=== PATIENT | male | born 1990 | race Caucasian/White ===

== ENCOUNTER 2021-02-01 16:03 | Inpatient (IN) | payer SELFPAY ==
[2021-02-01 16:05] VITALS: BP 134/108; PULSE 71; RESP 18; TEMP 36.9; O2SAT 97; BMI 26.6
--- NOTE | 2021-02-01 16:23 | ED_ITS ---
HPI - Psych General: Chief Complaint: Psychiatric Symptoms Stated Complaint: SI Time Seen by Provider: 02/01/21 16:18 History of Present Illness: HPI Narrative: Patient presents with suicidal ideation and has a plan he would drive off a [place] with his truck because he does not want to go on living. States he has been getting depressed here in the last few months. having relationship problems. Now his fianc?e has been cheating on him he found out, now keeping his kid from him. She also has a restraining order from him. Patient is in the room crying and tearful, said he has been smoking some weed to help deal with his anxiety from this ordeal. Aria lozano basically states he is afraid of what he might do to himself if he is left alone. He said he cannot deal with the emotional stress that he is going through. He is asking us for help MD complaint: suicidal ideation Onset (ago): day(s) Duration: constant and getting worse History of same: Yes (A long time ago) Relieving factors: other (Marijuana has helped) Context: recent drug abuse and significant life stressor Associated psychiatric symptoms: depression and suicidal ideation Associated symptoms: Reports no associated symptoms and depression If self harm: admits thoughts of self harm and has plan Review of Systems Const: Denies: fever(s), chills or body aches Eyes: Denies: change in vision or blurry vision ENMT: Denies: throat pain or nasal congestion Card: Denies: chest pain or dyspnea on exertion Resp: Denies: dyspnea, productive cough or non-productive cough GI: Denies: abdominal pain, nausea or vomiting : Denies: difficulty urinating Musc: Denies: extremity pain Skin/Breast: Denies: rash Neuro: Denies: headache(s) Psych: Reports: anxiety, depression, sleeping less and difficulty concentrating Donovan/Lymph: Denies: easy bruising Physical Exam Const: COMMON NORMALS: no acute distress, average body habitus and patient oriented x3 GENERAL APPEARANCE: well kempt HENMT: COMMON NORMALS: normocephalic HEAD & SCALP: normal to inspection and normocephalic FACE & SINUS: normal facial exam Eye: COMMON NORMALS: conjunctivae normal GENERAL EYE: appearance normal, both eyes and all related structures CONJUNCTIVA: Yes conjunctivae normal Neck/C-Spine: COMMON NORMALS: no JVD Chest: COMMONS NORMALS: normal inspection of the chest Resp: COMMON NORMALS: normal respiratory effort and clear to auscultation bilaterally AUSCULTATION: clear to auscultation bilaterally Cardio: COMMON NORMALS: no JVD, regular rate and regular rhythm RATE: regular rate RHYTHM: regular rhythm GI: COMMON NORMALS: Normal to inspection, nondistended, normoactive bowel sounds present Extremity: COMMON NORMALS: normal to inspection and full ROM Neuro: COMMON NORMALS: patient oriented x3 Psych: COMMON NORMALS: mental status grossly normal and Normal thought process present APPEARANCE: Yes well kempt ATTITUDE: Yes engaged ACTIVITY/MOTOR BEHAVIOR: Yes appropriate eye contact SPEECH: Yes soft MOOD & AFFECT: Yes anxious and Yes Other affect and mood findings present (Crying) THOUGHT PROCESS: Normal thought process present JUDGEMENT: Good judgement present (Psych) Course Vital Signs: Vital signs: Vital Signs Temperature 98.4 F 02/01/21 16:05 Pulse Rate 71 02/01/21 16:05 Respiratory Rate 18 02/01/21 16:05 Blood Pressure 134/108 02/01/21 16:05 Pulse Oximetry 97 02/01/21 16:05 MDM - Psych MDM Narrative: Medical decision making narrative: I spoke with Dr. Ramon who agrees accept patient for admission. Discharge Plan Discharge Patient Disposition: Admitted As Inpatient Clinical Impression: Depression with suicidal ideation Condition: Stable Coding Level of Care Code ED Paediatric Surgeon for Lelo Fwd Exam Comprehensive
[2021-02-01 16:50] LABS: Basophils % 0.3 %; Eosinophils # 0.1 10^3/uL (0.0-0.8); Eosinophils % 1.7 %; Hematocrit 42.8 % (42.0-52.0); Hemoglobin 14.4 g/dL (11.7-16.6); Lymphocytes % 43.4 %; Mean Corpuscular HGB Conc 33.6 g/dL (30.0-36.0); Mean Corpuscular Volume 92.2 fL (80-94); Mean Platelet Volume 9.6 fL (7.4-10.4); Monocytes # 0.4 10^3/uL (0.2-0.9); Monocytes % 5.2 %; Neutrophils # 3.38 10^3/uL (1.8-7.7); Neutrophils % 49.3 %; Nucleated Red Blood Cells % 0 %; Platelet Count 280 10^3/cmm (130-400); Red Blood Count 4.64 10^6/uL (4.1-5.3); Red Cell Distribution Width 12.7 % (12.1-15.1); White Blood Count 6.9 10^3/uL (4.0-10.0)
[2021-02-01] MEDS: LORazepam 1 mg Tablet PO (16:55)
[2021-02-01 17:02] LABS: Amphetamines Screen Urine Positive (Negative); Barbiturates Screen Urine Negative (Negative); Benzodiazepines Screen Urine Negative (Negative); Cocaine Screen Urine Negative (Negative); Opiate Screen Urine Negative (Negative); PCP Screen Urine Negative (Negative); THC Screen Urine Positive (Negative)
[2021-02-01 17:47] LABS: Alanine Aminotransferase 30 U/L (0-41); Albumin Level 4.3 g/dL (3.5-5.2); Alkaline Phosphatase 61 IU/L (40-130); Anion Gap 13.7 (5-19); Aspartate Amino Transferase 25 U/L (0-40); Blood Urea Nitrogen 9 mg/dL (6-20); Calcium 8.2 mg/dL (8.5-10.5); Carbon Dioxide 25 mmol/L (22-29); Chloride 102 mmol/L (98-107); Globulin 2.6 g/dL (1.3-4.6); Glomerular Filtration Rate 98.4 mL/min (90-130); Glucose 99 mg/dL (65-115); Osmolality Calculated 283 mOsm/kg (285-295); Potassium 3.7 mmol/L (3.5-5.1); Sodium 137 mmol/L (136-145); Total Bilirubin 0.6 mg/dL (0.15-1.2); Total Protein 6.9 g/dL (6.6-8.7)
[2021-02-01 17:48] LABS: Slide Review Slide Review Perform
[2021-02-01 17:58] LABS: Acetaminophen < 5.0 ug/mL (10-30); Salicylate < 0.3 mg/dL (3-10)
[2021-02-01 18:57] VITALS: BP 126/85; PULSE 77; RESP 17; TEMP 36.5; O2SAT 98
--- NOTE | 2021-02-01 19:54 | PC.NURSE ---
short count on med pt came to NPU with Suboxone 8-2mg dissolvable pills, his bottle was filled on at [facility], , prescribed by Aris Nicholas 01/21/21 with count of 84 pills at that time prescribed TID; today 02/01/21, count verified by MARIZA CAMILO and TENISHA Ochoa, it is currently 30.5 pills in the bottle, the count is short by 19.5 pills. They are unaccounted for by pt. Bottle sealed, pt watched and signed count at time of admit. Physician notified. Dr Benny Ramon 02/01/21 @2012 who orders NPU to hold this medication.
[2021-02-01] MEDS: hyDROXYzine 25 mg Capsule 50 MG PO (20:19)
[2021-02-01] MEDS: nicotine 2 mg Gum BUCCAL (20:19)
[2021-02-01] MEDS: acetaminophen 325 mg Tablet 650 MG PO (21:02)
[2021-02-01 22:00] VITALS: BP 106/76; PULSE 81; RESP 18; TEMP 36.4; O2SAT 98
--- NOTE | 2021-02-01 23:21 | PC.NURSE ---
new admit 35/M . Zhang Justin +METH +THC, Uses Suboxone 8-2mg PO BID, count is short by 30.5 pills on count by nurses in NPU, Physician notified. Medication held on Dr. Ramon order. Pt is 96d SI -plan to drive his Semi off a [place], depressed over last couple months after relationship ended d/t cheating partner, reports significant other is not letting him see his child. 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
[2021-02-02 06:00] VITALS: BP 85/58; PULSE 55; RESP 14; TEMP 36.8; O2SAT 96
[2021-02-02] MEDS: hyDROXYzine 25 mg Capsule 50 MG PO (12:56)
[2021-02-02] MEDS: nicotine 21 mg Patch 1 PATCH TRANSDERMA (13:20)
[2021-02-02 14:00] VITALS: BP 98/66; PULSE 68; RESP 16; TEMP 36.7; O2SAT 97
--- NOTE | 2021-02-02 14:22 | PM.NHP ---
Providers/Chief Complaint Admitting Physician: Mark Ramon MD Chief Complaint: SI HPI NPU History of Present Illness Zhang Anderson is a 30 year old male who presented to the emergency department with the following report: Chief Complaint: Psychiatric Symptoms Stated Complaint: SI Time Seen by Provider: 02/01/21 16:18 History of Present Illness: HPI Narrative: Patient presents with suicidal ideation and has a plan he would drive off a [place] with his truck because he does not want to go on living. States he has been getting depressed here in the last few months. having relationship problems. Now his fianc?e has been cheating on him he found out, now keeping his kid from him. She also has a restraining order from him. Patient is in the room crying and tearful, said he has been smoking some weed to help deal with his anxiety from this ordeal. Patient basically states he is afraid of what he might do to himself if he is left alone. He said he cannot deal with the emotional stress that he is going through. He is asking us for help complaint: suicidal ideation Onset (ago): day(s) Duration: constant and getting worse History of same: Yes (A long time ago) Relieving factors: other (Marijuana has helped) Context: recent drug abuse and significant life stressor Associated psychiatric symptoms: depression and suicidal ideation Associated symptoms: Reports no associated symptoms and depression If self harm: admits thoughts of self harm and has plan. He was admitted to the neuropsychiatric unit for definitive treatment of those issues. He reports today endorsing that he never had psychiatric treatment, never saw a therapist or outpatient psychiatrist and never been on medication. He reports he smokes about 1/2 pack of cigarettes a day has alcohol very seldom but does smoke marijuana and he denied cocaine methamphetamine or other illicit drugs. He denies ever going to rehab or having a DUI. He denied history of suicide attempts. He reports that his mom left him after treating and broke his heart and left with his child and kept his child away. He reports it is all piled up and he came to the hospital yesterday secondary to those issues. He did not report an answer to his UDS. But he did endorse a willingness to try an antidepressant but reports that he needs to get back to work. We discussed the fact that we needed to evaluate for safety given the reports in the affidavits. Discussed the risk-benefit alternatives for trial of SSRI and he understood and agreed proceed as documented in this note. Psychiatric history: As above. Substance abuse history: As above Family history: Patient denies mental health or addiction issues on either side of the family and denies suicide attempts or completions in the family. Developmental history: There were no problems with the , or delivery, learned to walk and talk and met developmental milestones on time, and denies need for speech therapy, learning support, emotional support or special education classes. Psychosocial history: He reports that his mother and father were together and that he has a younger sister who is a product of that union. He denies his mother having any other children, but reports his father did have a daughter that is his half sibling. He reports his childhood was not the greatest but he denies emotional, physical or sexual abuse. He graduated from high school. 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 He reports that he is a heterosexual with a long relationship being 45 years. He is never been officially , he has a 9-year-old daughter and 3-year-old son, is never been in the , and denies any restorationist belief system. He reports his longest employment is 3 years. He currently lives in a trailer alone. Legal history: He endorses he is been in retirement 1 time for maybe 6 days. Medical history: He denies any significant medical history please see ED note for additional details. Meds NPU Home Medications Medication Instructions Recorded Confirmed Last Taken Type buprenorphine-naloxone 1 tab SUBLINGUAL TID 02/01/21 02/01/21 02/01/21 13:00 History Allergies Allergy/AdvReac Type Severity Reaction Status Date / Time No Known Allergies Allergy Verified 02/01/21 20:10 Mental Status Exam MSE Comments: This is a well-nourished, well-developed white male with adequate dress, grooming and eye contact. No abnormal movements except mild psychomotor retardation. Cooperative with exam in no acute distress. Speech was normal rate and volume. Mood described as okay, affect slightly subdued. Thought process organized. Thought content: Patient denied suicidal or homicidal ideation, there were no delusions reported or noted, he denies any auditory or visual hallucinations. Attention and concentration were intact and memory was mostly reliable but none were formally tested. He is alert and oriented x3. Insight and judgment appear limited, impulse control is limited. Vitals/I&O/Wt Last Vital Signs Temp 98.1 F 02/02/21 14:00 Pulse 68 02/02/21 14:00 Resp 16 02/02/21 14:00 BP 98/66 02/02/21 14:00 Pulse Ox 97 02/02/21 14:00 Weight last 48 hrs Weight 81.647 kg Data NPU : 02/01/21 16:30 02/01/21 16:30 A&P Assessment and plan (1) Depression with suicidal ideation: Status: Acute (2) Anxiety: Status: Acute (3) Cannabis abuse: Status: Acute (4) Amphetamine addiction: Status: Acute (5) Opioid dependence on agonist therapy: Status: Acute Additional A&P Information This is a 30-year-old white male with a recent history of partner relational problem and depression with significant addiction that he seems to be under representing with suicidal thinking on a 96-hour hold. 1. Continue current medication. We will start Prozac 20 mg p.o. every morning. 2. Continue every 15 minute checks for safety. 3. Encourage individual, group and milieu therapies. 4. Encourage sober living treatment after discharge at the highest level of care to which he is willing to commit. 5. 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 He is very focused on getting back to work Involuntary Hold Information 96 Hour Hold: 96 Hour Involuntary Admission: Yes 96 Hour Hold Ending Date: 02/07/21 96 Hour Hold Ending Time: 16:30 Attestations NPU Medical Necessity Statement*: Inpatient hospitalization is medically necessary and the clinically appropriate intervention at this time. We will monitor medications and make changes as indicated. Patient will be in the hospital for over two midnights. Likely length of stay 2-4 days. Need to evaluate for safety given the 96-hour hold. Coding Level of Care Code Acute Claim Processor for Lelo Valdovinos Diagnoses Depression with suicidal ideation F32.9; R45.851 Anxiety F41.9 Cannabis abuse F12.10 Amphetamine addiction F15.20 Opioid dependence on agonist therapy F11.20
[2021-02-02] MEDS: NON-FORMULARY MEDICATION (Buprenorphine-Naloxone 8-2 mg tablet, sublingual) 1 EACH SUBLINGUAL ×2 (15:25→20:25)
[2021-02-02 20:22] VITALS: BP 98/62; PULSE 76; RESP 15; TEMP 36.9; O2SAT 96
[2021-02-03 06:00] VITALS: BP 99/62; PULSE 73; RESP 15; TEMP 36.4; O2SAT 96
[2021-02-03] MEDS: NON-FORMULARY MEDICATION (Buprenorphine-Naloxone 8-2 mg tablet, sublingual) 1 EACH SUBLINGUAL ×3 (08:32→20:30)
[2021-02-03] MEDS: fluoxetine 20 mg Capsule PO (08:32)
[2021-02-03] MEDS: nicotine 21 mg Patch 1 PATCH TRANSDERMA (13:40)
[2021-02-03 14:00] VITALS: BP 102/57; PULSE 71; RESP 20; TEMP 36.7; O2SAT 94
[2021-02-03] MEDS: hyDROXYzine 25 mg Capsule 50 MG PO ×2 (15:30→20:42)
--- NOTE | 2021-02-03 15:31 | PC.NURSE ---
Addendum entered by Shavon Mcgraw LPN 02/03/21 16:19: prn med effective no further c/o anxiety Original Note: PRN VISTARIL 50 MG GIVEN PO PER PT C/O STATED ANXIETY PT UPSET AFTER SPEAKING WITH PHYSICIAN. CLENCHED FISTS NOTICED. WILL CONT TO MONITOR
--- NOTE | 2021-02-03 16:06 | P.PN_ITS ---
Subjective NPU Subjective: Interval history: Patient denies any recent methamphetamine use, denies any ongoing treatment at any clinics despite being asked Patient currently denying any suicidal ideation, denies any depressive symptoms Denies any psychotic symptoms Mental Status Exam MSE Comments: Sitting up in his bed, appears stated age, wearing hospital scrubs, appropriately groomed and dressed, calm, cooperative although somewhat guarded and evasive, good eye contact Psychomotor activity is neither increased or decreased, no agitation Speech is normal rate and volume, spontaneous, clear reticulation, not pressured I feel okay, full range of affect, not labile Alert and oriented to person, place, time, situation Memory and concentration appear to be intact per interview Thought process, linear, no flight of ideas, no looseness of associations Thought content, no delusions, no hallucinations, no suicidal or homicidal ideation Insight and judgment appear to be fair Vitals/I&O/Wt Last Vital Signs Temp 97.6 F 02/03/21 06:00 Pulse 73 02/03/21 06:00 Resp 15 02/03/21 06:00 BP 99/62 02/03/21 06:00 Pulse Ox 96 02/03/21 06:00 Data NPU : 02/01/21 16:30 02/01/21 16:30 A&P Assessment and plan (1) Opioid dependence on agonist therapy: Status: Acute (2) Amphetamine addiction: Status: Acute (3) Cannabis abuse: Status: Acute (4) Anxiety: Status: Acute (5) Depression with suicidal ideation: Status: Acute Additional A&P Information Patient appears to be in denial about recent methamphetamine use but does report recent cannabis use, denies any depressive symptoms and also appears to be in denial about his stress and reaction to recent ongoing relationship and life stressors CONTINUE treatment, continue to monitor Involuntary Hold Information 96 Hour Hold: 96 Hour Involuntary Admission: Yes 96 Hour Hold Ending Date: 02/07/21 96 Hour Hold Ending Time: 16:30 Attestations NPU Medical Necessity Statement*: Patient continues to be on 96-hour hold for evaluation and monitoring, coordination for safe discharge Coding Level of Care Code Acute Dental Assistant for Lelo Fwd Diagnoses Opioid dependence on agonist therapy F11.20 Amphetamine addiction F15.20 Cannabis abuse F12.10 Anxiety F41.9 Depression with suicidal ideation F32.9; R45.851
[2021-02-03 20:34] VITALS: BP 93/55; PULSE 68; RESP 16; TEMP 36.6; O2SAT 97
[2021-02-03] MEDS: trazodone 50 mg Tablet PO (20:43)
[2021-02-03] MEDS: acetaminophen 325 mg Tablet 650 MG PO (20:43)
--- NOTE | 2021-02-04 00:54 | PC.NURSE ---
The patient requested and given Trazodone and Vistaril to help with sleep. He has been sleeping since about 2129.
[2021-02-04 05:40] VITALS: BP 93/61; PULSE 68; RESP 16; TEMP 36.7; O2SAT 96
[2021-02-04] MEDS: NON-FORMULARY MEDICATION (Buprenorphine-Naloxone 8-2 mg tablet, sublingual) 1 EACH SUBLINGUAL (08:34)
[2021-02-04] MEDS: fluoxetine 20 mg Capsule PO (08:34)
[2021-02-04 09:20] VITALS: BP 93/61; PULSE 68; RESP 16; TEMP 36.7; O2SAT 96
--- NOTE | 2021-02-04 10:10 | P.DS_ITS ---
Diagnoses at Discharge Discharge Diagnosis (1) Opioid dependence on agonist therapy: Status: Acute (2) Amphetamine addiction: Status: Acute (3) Cannabis abuse: Status: Acute (4) Anxiety: Status: Acute (5) Depression with suicidal ideation: Status: Acute Reason for Visit Reason for Visit: SI Hospital Course Hospital Course 30-year-old male presents to the emergency department context of multiple life stressors to include failing marriage, past history of substance use, financial strain, states that he was feeling depressed because his and left with his child and he had not been able to see his child. Patient states that he initially did not endorse any suicidal ideation but was pressed on multiple occasions by the emergency department staff being asked how he would harm himself, to which he responded, I do not know, maybe I would drive off the road. Patient denied any suicidal ideation throughout his hospital stay but did report ongoing stress related anxiety was started on fluoxetine 20 mg which he tolerated well with no reports of any medication side effects. Patient states that he is managed outpatient by a buprenorphine clinic and has been compliant with follow-up. When asked about positive methamphetamine on his urine drug screen as well as cannabis, patient states that he had been using cannabis secondary to worsening stressors but communicated his understanding of the need to find other means to mitigate his anxiety and denied any knowledge of taking methamphetamine knowingly. Patient participated in care to include group sessions with no reports of any behavioral disturbances. Patient was not suicidal and did not endorse any psychiatric symptoms at the time of discharge and did not appear to pose an imminent threat of harm to self or others. Low to moderate risk of harm to self given no current suicidal ideation and denial of any recent suicidal ideation and denying any current psychiatric symptoms although patient's risk may be elevated if he continues to use substances or is noncompliant with his medication and medication management follow-up leading to unexpected, impulsive behavior. Risk mitigation included psychiatric hospitalization for observation for any suicidal ideation or behaviors, medication stabilization, recommendation to abstain from the use of substances and alcohol as well as the need for post discharge substance counseling/treatment. Patient was able to communicate his understanding of the need to abstain from use of substances and alcohol as well as the need for post discharge substance counseling/treatment in order to further mitigate his risk of harm to self and others. Involuntary Hold Information 96 Hour Hold: 96 Hour Involuntary Admission: Yes 96 Hour Hold Ending Date: 02/07/21 96 Hour Hold Ending Time: 16:30 Mental Status Exam MSE Comments: Sitting in the day room, calm, cooperative, appropriately groomed and dressed, good eye contact Psychomotor activity is neither increased or decreased, no agitation Speech is normal rate and volume, spontaneous, clear reticulation, not pressured I feel good, full range of affect, smiles appropriately at times, not labile Alert and oriented to person, place, time, situation Memory and concentration appear to be intact per interview Thought process, linear, no flight of ideas, no looseness of associations Thought content, no delusions, no hallucinations, no suicidal or homicidal ideation Insight and judgment appear to be fair Discharge Data Vitals: Last Vital Signs Temp 98.1 F 02/04/21 09:20 Pulse 68 02/04/21 09:20 Resp 16 02/04/21 09:20 BP 93/61 02/04/21 09:20 Pulse Ox 96 02/04/21 09:20 Discharge Plan Discharge Patient Disposition: Home Condition: Stable Prescriptions: New fluoxetine 20 mg Capsule 20 mg PO DAILY Qty: 30 RF: 0 Continued buprenorphine-naloxone 8-2 mg tablet, sublingual 1 tab SUBLINGUAL TID RF: 0 Discharge Orders: Discharge Order (Routine); Ordered 02/04/21 Ordered By: Gricel Delgado Referrals: [facility] [Outside] Discharge Diet: Regular Discharge Activity: Resume usual activity Patient Instructions: Fluoxetine (By mouth), Opioid Safety Discharge Attestations NPU Time Spent in Discharge Care*: greater than 30 min Status at Discharge: Cognitive status at discharge: cognitively intact , Behavioral status at discharge: cooperative , Functional status at discharge: independent ambulation Overall status at discharge: patient is back to baseline Coding Level of Care Code Acute Chg FW DC note Diagnoses Opioid dependence on agonist therapy F11.20 Amphetamine addiction F15.20 Cannabis abuse F12.10 Anxiety F41.9 Depression with suicidal ideation F32.9; R45.851
== END 2021-02-04 11:12 | disposition home or self-care (01) | DRG 881 ==
LOC: ER 16:47 → NP 17:35
PROVIDERS: Nurse Practitioner Family; Admitting Provider Psychiatry & Neurology Psychiatry; Emergency Provider Emergency Medicine; Visit Provider Psychiatry & Neurology Psychiatry
DX: F32.9 Major depressive disorder, single episode, unspecified (principal); R45.851 Suicidal ideations; F15.20 Other stimulant dependence, uncomplicated; F11.20 Opioid dependence, uncomplicated; F12.10 Cannabis abuse, uncomplicated; Z63.0 Problems in relationship with spouse or partner; F17.210 Nicotine dependence, cigarettes, uncomplicated; F41.9 Anxiety disorder, unspecified
CPT/HCPCS: 80053; 80306; 80307; 85025; 99285

== ENCOUNTER 2022-04-04 21:50 | Emergency (ER) | payer SELFPAY ==
[2022-04-04 21:55] VITALS: PULSE 81; RESP 20; TEMP 36.6; O2SAT 98; BMI 25.1
[2022-04-04 22:08] LABS: Glucose Point of Care 86 mg/dL (70-110)
[2022-04-04 22:17] LABS: Basophils % 0.3 %; Eosinophils # 0.1 10^3/uL (0.0-0.8); Eosinophils % 1.7 %; Hematocrit 38.7 % (42.0-52.0); Hemoglobin 13.4 g/dL (11.7-16.6); Lymphocytes # 2.9 10^3/uL (0.8-4.8); Lymphocytes % 38.1 %; Mean Corpuscular HGB Conc 34.6 g/dL (30.0-36.0); Mean Corpuscular Hemoglobin 31.6 pg (28.0-34.0); Mean Corpuscular Volume 91.3 fl (80-94); Mean Platelet Volume 9.5 fL (7.4-10.4); Monocytes # 0.7 10^3/uL (0.2-0.9); Monocytes % 8.5 %; Neutrophils % 51.1 %; Nucleated Red Blood Cells % 0 %; Platelet Count 297 10^3/cmm (130-400); Red Blood Count 4.24 10^6/uL (4.1-5.3); Red Cell Distribution Width 13.1 % (12.1-15.1); White Blood Count 7.6 10^3/uL (4.0-10.0)
[2022-04-04 22:24] LABS: Alanine Aminotransferase 24 U/L (0-41); Albumin Level 3.8 g/dL (3.5-5.2); Alcohol Level 33 mg/dL (0-10); Alkaline Phosphatase 77 IU/L (40-130); Anion Gap 16.4 (5-19); Aspartate Amino Transferase 26 U/L (0-40); Blood Urea Nitrogen 15 mg/dL (6-20); Calcium 7.7 mg/dL (8.5-10.5); Carbon Dioxide 23 mmol/L (22-29); Chloride 105 mmol/L (98-107); Globulin 2.6 g/dL (1.3-4.6); Glomerular Filtration Rate 97.2 mL/min (90-130); Glucose 86 mg/dL (65-115); Osmolality Calculated 292 mOsm/kg (285-295); Potassium 3.4 mmol/L (3.5-5.1); Sodium 141 mmol/L (136-145); Total Bilirubin 0.3 mg/dL (0.15-1.2); Total Protein 6.4 g/dL (6.6-8.7)
[2022-04-04 22:25] LABS: Acetaminophen < 5.0 ug/mL (10-30); Salicylate < 0.3 mg/dL (3-10)
--- NOTE | 2022-04-04 22:30 | PC.NURSE ---
patient was given Narcan. He now responds to verbal stimuli. He is sleeping but will wake.
--- NOTE | 2022-04-04 23:30 | PC.NURSE ---
patient awake and alert. GF at bedside. Patient answering questions appropriately.
--- NOTE | 2022-04-04 23:46 | ED_ITS ---
HPI - Altered Mental Status General: Chief Complaint: Altered Mental Status Stated Complaint: etoh/ possible od Time Seen by Provider: 04/04/22 21:52 Source: EMS Mode of arrival: EMS Limitations: altered mental status History of Present Illness: 32-year-old male who was at a green party and had became unresponsive there and passed out. He does have a history of drug abuse EMS transported him here is people at the scene and called them. They have not given him any medicine. Patient originally was altered here and unresponsive did give him Narcan and he awoke. Review of Systems General: Reports: ROS unobtainable due to mental status Physical Exam Const: COMMON NORMALS: negative for patient oriented x3 EXAM LIMITATIONS: altered mental status HENMT: COMMON NORMALS: normocephalic and atraumatic HEAD & SCALP: no rmocephalic and atraumatic Eye: COMMON NORMALS: Equal, round and reactive pupils present and EOMs intact bilaterally PUPIL: Yes Equal, round and reactive pupils present Neck/C-Spine: COMMON NORMALS: full ROM Chest: COMMONS NORMALS: normal inspection of the chest and normal palpation of entire chest wall Resp: COMMON NORMALS: normal respiratory effort and clear to auscultation bilaterally AUSCULTATION: clear to auscultation bilaterally Cardio: COMMON NORMALS: regular rate and regular rhythm RATE: regular rate RHYTHM: regular rhythm GI: COMMON NORMALS: Normal to inspection, nondistended, normoactive bowel sounds present, Soft to palpation and non-tender PALPATION: Yes Soft to palpation Extremity: COMMON NORMALS: normal to inspection Neuro: COMMON NORMALS: negative for patient oriented x3 Psych: COMMON NORMALS: negative for mental status grossly normal Course Vital Signs: Vital signs: Vital Signs Temperature 97.8 F 04/04/22 21:55 Pulse Rate 80 04/05/22 00:13 Respiratory Rate 16 04/05/22 00:13 Blood Pressure 125/87 04/05/22 00:13 Pulse Oximetry 99 04/05/22 00:13 MDM - Altered Mental Status Medical Decision Making Patient presents here with altered mental status likely from drug use he did wake up here with Narcan and is now awake and ambulatory he is stable for discharge he was observed here. Lab Data : 04/04/22 22:00 04/04/22 22:00 Laboratory Results WBC 7.6 10^3/uL (4.0-10.0) 04/04/22 22:00 RBC 4.24 10^6/uL (4.1-5.3) 04/04/22 22:00 Hgb 13.4 g/dL (11.7-16.6) 04/04/22 22:00 Hct 38.7 % (42.0-52.0) L 04/04/22 22:00 MCV 91.3 fl (80-94) 04/04/22 22:00 MCH 31.6 pg (28.0-34.0) 04/04/22 22:00 MCHC 34.6 g/dL (30.0-36.0) 04/04/22 22:00 RDW 13.1 % (12.1-15.1) 04/04/22 22:00 Plt Count 297 10^3/cmm (130-400) 04/04/22 22:00 MPV 9.5 fL (7.4-10.4) 04/04/22 22:00 Neut % (Auto) 51.1 % 04/04/22 22:00 Lymph % (Auto) 38.1 % 04/04/22 22:00 [place] % (Auto) 8.5 % 04/04/22 22:00 Eos % (Auto) 1.7 % 04/04/22 22:00 Baso % (Auto) 0.3 % 04/04/22 22:00 Neut # (Auto) 3.90 10^3/uL (1.8-7.7) 04/04/22 22:00 Lymph # (Auto) 2.9 10^3/uL (0.8-4.8) 04/04/22 22:00 [place] # (Auto) 0.7 10^3/uL (0.2-0.9) 04/04/22 22:00 Eos # (Auto) 0.1 10^3/uL (0.0-0.8) 04/04/22 22:00 Baso # (Auto) 0.0 10^3/uL (0.0-0.1) 04/04/22 22:00 Nucleated RBC % (auto) 0 % 04/04/22 22:00 Nucleated RBCs # 0.0 /100WBC 04/04/22 22:00 Sodium 141 mmol/L (136-145) 04/04/22 22:00 Potassium 3.4 mmol/L (3.5-5.1) L 04/04/22 22:00 Chloride 105 mmol/L (98-107) 04/04/22 22:00 Carbon Dioxide 23 mmol/L (22-29) 04/04/22 22:00 Anion Gap 16.4 (5-19) 04/04/22 22:00 BUN 15 mg/dL (6-20) 04/04/22 22:00 Creatinine 0.9 mg/dL (0.7-1.2) 04/04/22 22:00 GFR Calculation 97.2 mL/min (90-130) 04/04/22 22:00 Glucose 86 mg/dL (65-115) 04/04/22 22:00 POC Glucose 86 mg/dL (70-110) 04/04/22 22:04 Calculated Osmolality 292 mOsm/kg (285-295) 04/04/22 22:00 Calcium 7.7 mg/dL (8.5-10.5) L 04/04/22 22:00 Total Bilirubin 0.3 mg/dL (0.15-1.2) 04/04/22 22:00 AST 26 U/L (0-40) 04/04/22 22:00 ALT 24 U/L (0-41) 04/04/22 22:00 Alkaline Phosphatase 77 IU/L (40-130) 04/04/22 22:00 Total Protein 6.4 g/dL (6.6-8.7) L 04/04/22 22:00 Albumin 3.8 g/dL (3.5-5.2) 04/04/22 22:00 Globulin 2.6 g/dL (1.3-4.6) 04/04/22 22:00 Salicylates < 0.3 mg/dL (3-10) L 04/04/22 22:00 Urine Opiates Screen Positive ng/mL (Negative) H 04/04/22 23:42 Acetaminophen < 5.0 ug/mL (10-30) L 04/04/22 22:00 Ur Barbiturates Screen Negative ng/mL (Negative) 04/04/22 23:42 Ur Phencyclidine Scrn Negative ng/mL (Negative) 04/04/22 23:42 Ur Amphetamines Screen Positive ng/mL (Negative) H 04/04/22 23:42 U Benzodiazepines Scrn Positive ng/mL (Negative) H 04/04/22 23:42 Urine Cocaine Screen Negative ng/mL (Negative) 04/04/22 23:42 U Marijuana (THC) Screen Positive ng/mL (Negative) H 04/04/22 23:42 Ethyl Alcohol 33 mg/dL (0-10) H 04/04/22 22:00 Discharge Plan Discharge Patient Disposition: Home Clinical Impression: Altered mental status Condition: Stable Prescriptions: No Action buprenorphine-naloxone 8-2 mg tablet, sublingual 1 tab SUBLINGUAL TID 0RF Rx Instructions: 8-2mg dissolvable pill fluoxetine 20 mg Capsule 20 mg PO DAILY Qty: 30 0RF Discharge Orders: Discharge ED (Routine); Ordered 04/04/22 Ordered By: Cortney Dowling Discharge Diet: Advance as tolerated Discharge Activity: Resume usual activity Patient Instructions: Altered Mental Status (ED) Coding Level of Care Code ED Senior Bioinformatics Scientist for Lelo Valdovinos
[2022-04-04 23:54] LABS: Amphetamines Screen Urine Positive (Negative); Barbiturates Screen Urine Negative (Negative); Benzodiazepines Screen Urine Positive (Negative); Cocaine Screen Urine Negative (Negative); Opiate Screen Urine Positive (Negative); PCP Screen Urine Negative (Negative); THC Screen Urine Positive (Negative)
[2022-04-05 00:13] VITALS: BP 125/87; PULSE 80; RESP 16; O2SAT 99
== END 2022-04-05 00:10 | disposition home or self-care (01) ==
PROVIDERS: Emergency Provider Emergency Medicine
DX: R41.82 Altered mental status, unspecified (principal); F15.10 Other stimulant abuse, uncomplicated; F12.10 Cannabis abuse, uncomplicated; F10.10 Alcohol abuse, uncomplicated; Y90.1 Blood alcohol level of 20-39 mg/100 ml
CPT/HCPCS: 36416; 80053; 80306; 80307; 82962; 85025; 96374; 99284; J2310

== ENCOUNTER → 2023-05-02 19:06 | Outpatient (BNVA) | payer OTHER, SELFPAY | PROVIDERS: Visit Provider Nurse Practitioner Family | DX: Z20.2 Contact with and (suspected) exposure to infections with a predominantly sexual mode of transmission (principal) | CPT/HCPCS: 87491; 87591; 87661 ==

== ENCOUNTER 2023-11-22 16:59 | Emergency (ER) | payer OTHER, SELFPAY ==
[2023-11-22 17:07] VITALS: BP 134/79; PULSE 105; RESP 16; TEMP 36.7; O2SAT 98; BMI 22.1
--- NOTE | 2023-11-22 17:13 | W.ED.COVID ---
HPI - COVID General: Chief Complaint: COVID symptoms Stated Complaint: fever,cough,body aches Time Seen by Provider: 11/22/23 17:12 History of Present Illness: 33-year-old male patient comes in today with complaints of bodyaches, fever and cough for 4 days. Patient appears nontoxic. Patient appears in no acute distress. COVID Results: SARS-CoV-2 Antigen (Rapid) negative (Negative) 11/22/23 17:21 Review of Systems General: Reports: 10 or more systems reviewed and unremarkable except in HPI and below PFSH ED PFSH: Medical History (Updated 11/22/23 @ 18:39 by BELLE Espino) Psychiatric care Physical Exam Const: COMMON NORMALS: alert HENMT: COMMON NORMALS: normocephalic HEAD & SCALP: normocephalic Neck/C-Spine: COMMON NORMALS: full ROM Resp: COMMON NORMALS: normal respiratory effort and clear to auscultation bilaterally AUSCULTATION: clear to auscultation bilaterally Cardio: COMMON NORMALS: regular rate and regular rhythm RATE: regular rate RHYTHM: regular rhythm Back/Pelvis: COMMON NORMALS: thoracic and lumbar spine normal to inspection Extremity: COMMON NORMALS: full ROM Neuro: SENSORIUM/ORIENTATION: Yes alert Skin: COMMON NORMALS: turgor normal GENERAL SKIN EXAM: turgor normal Course Vital Signs: Vital signs: Vital Signs Temperature 98.0 F 11/22/23 17:07 Pulse Rate 105 H 11/22/23 17:07 Respiratory Rate 16 11/22/23 17:07 Blood Pressure 134/79 11/22/23 17:07 Pulse Oximetry 95 11/22/23 17:22 Oxygen Delivery Me thod Room Air 11/22/23 17:22 MDM - COVID Medical Decision Making Patient comes in today for complaints of bodyaches, chills, malaise for about 3 to 4 days. Patient appears nontoxic. Patient appears in no acute distress. Differential diagnosis includes not limited to upper respiratory infection, viral syndrome, influenza, COVID-19. Patient was positive for influenza type A. Reviewed exam with patient with recommendations for treatment and follow-up. Patient reported understanding. Lab Data Laboratory Results Influenza Type A Ag positive (Negative) H 11/22/23 17:21 Influenza Type B Ag negative (Negative) 11/22/23 17:21 SARS-CoV-2 Ag (Rapid) negative (Negative) 11/22/23 17:21 SARS-CoV-2 Antigen (Rapid) negative (Negative) 11/22/23 17:21 No radiology studies performed this visit Discharge Plan Discharge Patient Disposition: Home Clinical Impression: Influenza Condition: Stable Prescriptions: No Action doxycycline hyclate 100 mg capsule 100 mg PO BID 7 Days Qty: 14 0RF hydrocodone-acetaminophen 5-300 mg tablet 1 tab PO BID PRN Discharge Orders: Discharge ED (Routine); Ordered 11/22/23 Ordered By: Khalif Friedman Patient Instructions: Influenza (ED) Activity Restrictions/Additional Instructions: Home and rest. Drink plenty of water and fluids. Use acetaminophen and ibuprofen for body aches and fever. Follow-up with primary care as needed. Return to ED for new concerns. Coding Level of Care Code ED Lubricating Machine Tender for Lelo Valdovinos
[2023-11-22 17:22] VITALS: O2SAT 95
[2023-11-22 18:30] LABS: Influenza A by IFA positive (Negative); Influenza B by IFA negative (Negative)
[2023-11-22 18:41] LABS: SARS Covid-2 Antigen negative (Negative)
== END 2023-11-22 18:49 | disposition home or self-care (01) ==
PROVIDERS: Emergency Provider Nurse Practitioner Family
DX: J10.1 Influenza due to other identified influenza virus with other respiratory manifestations (principal); Z11.52 Encounter for screening for COVID-19
CPT/HCPCS: 87426; 87804; 99283

== ENCOUNTER 2025-02-22 20:32 | Emergency (ER) | payer OTHER, SELFPAY ==
[2025-02-22 20:44] VITALS: BP 132/77; PULSE 82; RESP 18; TEMP 36.6; O2SAT 98; BMI 24.5
[2025-02-22] MEDS: lidocaine-epi 1% 20 mL INJ 3 ML INJECTION (21:42)
--- NOTE | 2025-02-22 21:50 | ED_ITS ---
HPI - Dental/Oral 2 General: Chief complaint: Dental/Oral Stated complaint: toothache Time Seen by Provider: 02/22/25 20:49 Source: patient Mode of arrival: ambulatory Limitations: no limitations History of Present Illness: Patient reports a toothache in the right upper jaw over the past 3 to 4 days. He states after he ate today the pain got worse. The patient reports he has a broken tooth in the back right and then a chip off of the wound in front of it. He does think he has got an exposed nerve. He denies any fever or chills. He denies any nausea or vomiting. He presents to the emergency department for further evaluation and treatment. Associated symptoms: Denies fever(s) or tongue swelling Related Data Previous Rx's ?Medication ?Instructions ?Recorded amoxicillin 875 mg-potassium 1 tab PO BID #19 tabs clavulanate 125 mg tablet chlorhexidine gluconate 0.12 % 15 ml buccal BID #473 m L 02/22/25 mouthwash (Peridex) lidocaine HCl 2 % mucosal solution 15 ml mucous membra ne Q4H PRN pain 02/22/25 (Lidocaine Viscous) #100 mL naproxen 500 mg tablet 500 mg PO Q12H PRN pain #10 tabs 02/22/25 Allergies Allergy/AdvReac Type Severity Reaction Status Date / Time No Known Allergies Allergy Verified 05/02/23 18:53 Review of Systems 2 General: Reports: 10 or more systems reviewed and unremarkable except in HPI and below Const: Denies: fever(s) or chills Eyes: Reports: change in vision ENMT: Reports: dental pain (Right upper molar) Card: Denies: chest pain Resp: Denies: dyspnea, productive cough or non-productive cough GI: Denies: abdominal pain, nausea or vomiting : Denies: difficulty urinating or dysuria Musc: Denies: neck pain or back pain Skin/Breast: Denies: rash or erythema Neuro: Denies: headache(s) Psych: Denies: anxiety Endo: Denies: polyuria or polydipsia [place]/Lymph: Denies: easy bruising, easy bleeding or petechiae All/Imm: Denies: urticaria, throat swelling or tongue swelling PFSH ED 2 PFSH: Medical History (Updated 02/22/25 @ 21:58 by ROMEO Souza) Anxiety Social History (Updated 02/22/25 @ 21:52 by ROMEO Souza) Smoking and tobacco/nicotine status: current every day tobacco/nicotine user Physical Exam 2 Const: GENERAL APPEARANCE: cooperative HENMT: COMMON NORMALS: normocephalic and atraumatic HEAD & SCALP: n ormocephalic and atraumatic TEETH & GINGIVA IMAGES: 1. Tenderness, cracked tooth, #1 molar is broken off with significant caries. There is some mild erythema of the gumline but no pointing abscess at this time. Eye: COMMON NORMALS: conjunctivae normal CONJUNCTIVA: Yes conjunctivae normal Neck/C-Spine: COMMON NORMALS: full ROM and no lymphadenopathy Resp: COMMON NORMALS: normal respiratory effort and clear to auscultation bilaterally AUSCULTATION: clear to auscultation bilaterally, no crackles, no rales, no rhonchi and no wheezes Cardio: COMMON NORMALS: regular rate and regular rhythm RATE: regular rate RHYTHM: regular rhythm Back/Pelvis: COMMON NORMALS: thoraco-lumbar ROM normal Extremity: COMMON NORMALS: normal to inspection, full ROM and no pedal edema Psych: COMMON NORMALS: cooperative and speech normal SPEECH: Yes normal speech MOOD & AFFECT: Yes anxious Skin: COMMON NORMALS: no rashes or lesions noted GENERAL SKIN EXAM: no rashes or lesions noted Procedures Nerve Block Nerve Block 1: Local Anesthetic: lidocaine 1% and with epi Amount of anesthesia used (mL): 2.5 Side: right Intraoral Nerve Block: superior alveolar Procedure Successful: Yes Patient Tolerated Procedure: well Complications: none Course 2 Vital Signs: Vital signs: Vital Signs Temperature 98.1 F 02/22/25 22:18 Pulse Rate 79 02/22/25 22:18 Respiratory Rate 16 02/22/25 22:18 Blood Pressure 129/79 02/22/25 22:18 Pulse Oximetry 97 02/22/25 22:18 Oxygen Delivery Me thod Room Air 02/22/25 20:44 MDM - Dental/Oral Medical Decision Making Patient is 35-year-old male who presented to the emergency department with right upper dental pain. He states he got worse after he ate today. He requested a dental block so a superior alveolar nerve block was placed with 1% lidocaine with epi. The patient reports good results from this block. There is no obvious dental abscess noted, however, there was some inflammation consistent with gingivitis. Patient was advised he will need to follow-up with a dentist soon as possible. He was given Augmentin here and will be provided with a prescription for Peridex, viscous lidocaine, Augmentin and naproxen to use as directed. I recommended he follow-up with a dentist soon as possible and return to the emergency department with any worsening symptoms. The patient expressed understanding. Differential Diagnosis Likely gingival abscess, dental caries, toothache and dental abscess No radiology studies performed this visit Critical Care Time 2 Critical Care Time: Critical Care Time: No Discharge Plan Discharge Patient Disposition: Home Clinical Impression: Dental infection, Gingivitis, Pain, dental Prescriptions: New amoxicillin-pot clavulanate 875-125 mg tablet 1 tab PO BID Qty: 19 0RF lidocaine HCl [Lidocaine Viscous] 2 % solution 15 ml mucous membrane Q4H PRN (Reason: pain) Qty: 100 0RF Rx Instructions: Swish and spit naproxen 500 mg tablet 500 mg PO Q12H PRN (Reason: pain) Qty: 10 0RF chlorhexidine gluconate [Peridex] 0.12 % mouthwash 15 ml buccal BID Qty: 473 0RF Discontinued doxycycline hyclate 100 mg capsule 100 mg PO BID 7 Days Qty: 14 0RF hydrocodone-acetaminophen 5-300 mg tablet 1 tab PO BID PRN Discharge Orders: Discharge ED (Routine); Ordered 02/22/25 Ordered By: Anton Felipe Discharge Diet: Soft Mechanical Discharge Activity: Resume usual activity Patient Instructions: Dental Abscess (ED), Gingivitis (ED), Opioid Safety, Pain Management Activity Restrictions/Additional Instructions: Use the medications as directed. The prescriptions were sent electronically to the [facility] pharmacy in [place] Warm salt water rinses 3 times a day. Follow-up with a dentist as soon as possible. Warm compresses 15 minutes at a time, 5 times throughout the day as needed for pain. If the warm compress makes the swelling worse you may alternate with ice. Return to the emergency department with any worsening symptoms. Print Language: Armenian Coding Level of Care Code ED Commercial Roofing Estimator for Lelo Valdovinos
[2025-02-22] MEDS: amoxicillin-clav 875-125 mg Tablet 1 TAB PO (21:57)
[2025-02-22 22:18] VITALS: BP 129/79; PULSE 79; RESP 16; TEMP 36.7; O2SAT 97
== END 2025-02-22 22:20 | disposition home or self-care (01) ==
PROVIDERS: Emergency Provider Physician Assistant
DX: K05.10 Chronic gingivitis, plaque induced (principal); F17.200 Nicotine dependence, unspecified, uncomplicated
CPT/HCPCS: 12345; 99283; J9999

== ENCOUNTER 2025-02-28 19:47 | Emergency (ER) | payer OTHER, SELFPAY ==
[2025-02-28 20:06] VITALS: BP 126/80; PULSE 83; RESP 17; TEMP 36.7; O2SAT 98; BMI 25.1
--- NOTE | 2025-03-01 00:14 | W.ED.RECABL ---
HPI - Recheck/Abnormal Lab/Rx General: Chief Complaint: Recheck/Abnormal Lab/Rx Stated Complaint: trying to get off Saboxin for sober living facilit Time Seen by Provider: 02/28/25 23:34 History of Present Illness: Patient presents to the emergency department stating that he is living in a sober facility and has been told that he has to get off Suboxone to continue to live there. Per the facility patient can take naltrexone while living there patient denies any complaints and states he has tried to get off Suboxone multiple times but has been unsuccessful. Patient denies any SI HI or EtOH consumption. Patient is requesting STD testing. Related Data Previous Rx's ?Medication ?Instructions ?Recorded amoxicillin 875 mg-potassium 1 tab PO BID #19 tabs 02/22/25 clavulanate 125 mg tablet chlorhexidine gluconate 0.12 % 15 ml buccal BID #473 mL 02/22/25 mouthwash (Peridex) lidocaine HCl 2 % mucosal solution 15 ml mucous membrane Q4H PRN pain 02/22/25 (Lidocaine Viscous) #100 mL naproxen 500 mg tablet 500 mg PO Q12H PRN pain #10 tabs 02/22/25 naltrexone 50 mg tablet 50 mg PO Q24H 30 days #30 tabs 03/01/25 Allergies Allergy/AdvReac Type Severity Reaction Status Date / Time No Known Allergies Allergy Verified 05/02/23 18:53 Review of Systems General: Reports: 10 or more systems reviewed and unremarkable except in HPI and below Const: Denies: fever(s) or chills Eyes: Reports: change in vision ENMT: Reports: dental pain (Right upper molar) Card: Denies: chest pain Resp: Denies: dyspnea, productive cough or non-productive cough GI: Denies: abdominal pain, nausea or vomiting : Denies: difficulty urinating or dysuria Musc: Denies: neck pain or back pain Skin/Breast: Denies: rash or erythema Neuro: Denies: headache(s) Psych: Denies: anxiety [facility] ED PFSH: Medical History (Updated 03/01/25 @ 00:15 by Karen Kathleen NP) Anxiety Social History (Updated 02/22/25 @ 21:52 by ROMEO Souza) Smoking and tobacco/nicotine status: current every day tobacco/nicotine user Course Vital Signs: Vital signs: Vital Signs Temperature 98.0 F 02/28/25 20:06 Pulse Rate 83 02/28/25 20:06 Respiratory Rate 17 02/28/25 20:06 Blood Pressure 126/80 02/28/25 20:06 Pulse Oximetry 98 02/28/25 20:06 Oxygen Delivery Me thod Room Air 02/28/25 20:06 MDM - Recheck/Abnormal Lab/Rx Medical Decision Making Patient is well-appearing nontoxic and in no acute distress. Patient presents to the emergency department stating that he is living in a sober facility and has been told that he has to get off Suboxone to continue to live there. Per the facility patient can take naltrexone while living there patient denies any complaints and states he has tried to get off Suboxone multiple times but has been unsuccessful. Patient denies any SI HI or EtOH consumption. Patient is requesting STD testing without complaints I will send specimen off for testing and advised patient that we will call him with any positive results and adjust treatment at that time. Given patient's concern for failure in his rehab home I will go ahead and prescribe patient now tracks own at this time. I advised patient of any repeat prescription refills need to be done through his primary care physician. Patient denies any SI or HI. Patient has been cooperative and pleasant. Patient is very thankful for the prescription. Patient is medically cleared and appropriate for discharge Lab Data Laboratory Results Urine Color Yellow (Yellow) 03/01/25 00:44 Urine Appearance Clear (CLEAR) 03/01/25 00:44 Urine pH 7.5 (5-7) 03/01/25 00:44 Ur Specific [place] 1.018 (1.005-1.030) 03/01/25 00:44 Urine Protein Negative (Negative) 03/01/25 00:44 Urine Glucose (UA) Negative (Normal) 03/01/25 00:44 Urine Ketones Negative (Negative) 03/01/25 00:44 Urine Blood Negative (Negative) 03/01/25 00:44 Urine Nitrate Negative (Negative) 03/01/25 00:44 Urine Bilirubin Negative (Negative) 03/01/25 00:44 Urine Urobilinogen 1.0 mg/dL (Negative) 03/01/25 00:44 Ur Leukocyte Esterase Negative (Negative) 03/01/25 00:44 Urine RBC 0-2 /hpf (0-2) 03/01/25 00:44 Urine WBC 0-5 /hpf (0-5) 03/01/25 00:44 Ur Squamous Epith Cells 0-5 /hpf (0-5) 03/01/25 00:44 Amorphous Sediment Not Reportable 03/01/25 00:44 Urine Bacteria None seen /hpf (NONE) 03/01/25 00:44 Hyaline Casts 0.40 /lpf 03/01/25 00:44 C. trachomatis (PCR) Not detected 03/01/25 00:44 N. gonorrhoeae (PCR) Not detected 03/01/25 00:44 No radiology studies performed this visit Discharge Plan Discharge Patient Disposition: Home Clinical Impression: Encounter for medication refill, Concern about STD in male without diagnosis Condition: Stable Prescriptions: New naltrexone 50 mg tablet 50 mg PO Q24H 30 Days Qty: 30 0RF Rx Instructions: Take 25 mg day 1 and day 2 then increase to 50 mg daily No Action amoxicillin-pot clavulanate 875-125 mg tablet 1 tab PO BID Qty: 19 0RF lidocaine HCl [Lidocaine Viscous] 2 % solution 15 ml mucous membrane Q4H PRN (Reason: pain) Qty: 100 0RF Rx Instructions: Swish and spit naproxen 500 mg tablet 500 mg PO Q12H PRN (Reason: pain) Qty: 10 0RF chlorhexidine gluconate [Peridex] 0.12 % mouthwash 15 ml buccal BID Qty: 473 0RF Discharge Orders: Discharge ED (Routine); Ordered 03/01/25 Ordered By: Karen Kathleen Discharge Diet: Advance as tolerated Discharge Activity: Increase activity as tolerated Patient Instructions: Sexually Transmitted Diseases (ED), Opioid Safety, Pain Management Activity Restrictions/Additional Instructions: Please take meds as directed Follow up with PCP for additional refills We will call you with any positive std results and adjust therapy at that time Return to ER with any concerns Print Language: Maltese Coding Level of Care Code ED Sack Sewer for Lelo Valdovinos
[2025-03-01 00:56] LABS: Bilirubin Urine Negative (Negative); Blood Urine Negative (Negative); Glucose Urine UA Negative (Normal); Ketones Urine Negative (Negative); Leukocyte Esterase Urine Negative (Negative); Nitrate Urine Negative (Negative); Protein Urine Negative (Negative); Specific Gravity, Urine 1.018 (1.005-1.030); Urine Appearance Clear (CLEAR); Urine Color Yellow (Yellow); pH Urine 7.5 (5-7)
[2025-03-01 01:08] LABS: Add Urine Microscopic? YES; Bacteria Urine None Seen /hpf; RBC Urine 0-2 /hpf (0-2); Squamous Epithelial Cell Urine 0-5 /hpf (0-5); WBC Urine 0-5 /hpf (0-5)
[2025-03-01 03:14] LABS: Chlamydia Trachomatis NOT DETECTED; Neisseria Gonorrhea NOT DETECTED
[2025-03-02 14:30] LABS: Trichomonas Vaginalis TMA Male DETECTED (NOT DETECTED)
== END 2025-03-01 00:48 | disposition home or self-care (01) ==
PROVIDERS: Emergency Provider Registered Nurse
DX: Z76.0 Encounter for issue of repeat prescription (principal); Z20.2 Contact with and (suspected) exposure to infections with a predominantly sexual mode of transmission; Z72.0 Tobacco use
CPT/HCPCS: 81001; 87491; 87591; 87661; 99283

== ENCOUNTER 2025-03-02 12:47 | Emergency (ER) | payer SELFPAY ==
[2025-03-02 13:00] VITALS: BP 142/88; PULSE 95; RESP 16; TEMP 37.2; O2SAT 94; BMI 25.8
--- NOTE | 2025-03-02 13:03 | ED_ITS ---
HPI - General Adult 2 General: Chief complaint: Abdominal Pain Stated complaint: n/v, leg cramps, medication reaction Time Seen by Provider: 03/02/25 12:59 History of Present Illness: 35-year-old male presents emergency room complaints of nausea and vomiting. Patient recently was transition from Suboxone to naltrexone. He has persistent nausea and vomiting since then he is leaving his sober living center and they will not let him take his Suboxone anymore. He denies hematochezia melena hematemesis cough cramps no chest pain or shortness of breath. Associated symptoms: Reports nausea and vomiting; Deny chest pain, dyspnea or rash Related Data Previous Rx's ?Medication ?Instructions ?Recorded amoxicillin 875 mg-potassium 1 tab PO BID #19 tabs clavulanate 125 mg tablet chlorhexidine gluconate 0.12 % 15 ml buccal BID #473 m L 02/22/25 mouthwash (Peridex) lidocaine HCl 2 % mucosal solution 15 ml mucous membra ne Q4H PRN pain 02/22/25 (Lidocaine Viscous) #100 mL naproxen 500 mg tablet 500 mg PO Q12H PRN pain #10 tabs 02/22/25 naltrexone 50 mg tablet 50 mg PO Q24H 30 days #30 ta bs 03/01/25 promethazine 25 mg tablet 25 mg PO Q6H PRN nausea and 03/02/25 vomiting #20 tabs Allergies Allergy/AdvReac Type Severity Reaction Status Date / Time No Known Allergies Allergy Verified 05/02/23 18:53 Review of Systems 2 Const: Denies: fever(s) or chills Card: Denies: chest pain Resp: Denies: dyspnea GI: Reports: abdominal pain, nausea and vomiting; Denies: hematemesis, coffee ground emesis, hematochezia or melena : Denies: dysuria, urinary frequency or urinary urgency Musc: Denies: neck pain or back pain Skin/Breast: Denies: rash PFSH ED 2 PFSH: Medical History Anxiety Social History Smoking and tobacco/nicotine status: current every day tobacco/nicotine user Physical Exam 2 Const: GENERAL APPEARANCE: cooperative ORIENTATION/CONSCIOUSNESS: Yes awake, Yes oriented to person, Yes oriented to place and Yes oriented to time HENMT: COMMON NORMALS: normocephalic, atraumatic and hearing grossly normal bilaterally HEAD & SCALP: normocephalic and atraumatic Resp: COMMON NORMALS: normal respiratory effort, No retractions, No use of accessory muscles and clear to auscultation bilaterally AUSCULTATION: clear to auscultation bilaterally Cardio: COMMON NORMALS: regular rate, regular rhythm and No murmurs present (Cardio) RATE: regular rate RHYTHM: regular rhythm GI: COMMON NORMALS: Soft to palpation and No hepatosplenomegaly present A USCULTATION: Yes normoactive bowel sounds PALPATION: Yes Soft to palpation, No Tenderness to palpation present (GI), No Guarding due to palpation present (GI) and Yes No hepatosplenomegaly present Extremity: COMMON NORMALS: normal to inspection, capillary refill normal, no clubbing, cyanosis or edema, no calf tenderness and no pedal edema Neuro: SENSORIUM/ORIENTATION: Yes oriented to person, Yes oriented to place and Yes oriented to time Skin: COMMON NORMALS: no rashes or lesions noted GENERAL SKIN EXAM: no rashes or lesions noted Course 2 Vital Signs: Vital signs: Vital Signs Temperature 98.9 F 03/02/25 13:00 Pulse Rate 95 03/02/25 13:00 Respiratory Rate 18 03/02/25 14:31 Blood Pressure 125/73 03/02/25 14:31 Pulse Oximetry 94 03/02/25 13:00 Oxygen Delivery Me thod Room Air 03/02/25 13:00 [facility] - General Adult Medical Decision Making Laboratory test unremarkable. Abdominal exam generally benign. Given IV fluids does feel somewhat better will discharge home with promethazine as needed close okay to affect 24 to 48 hours and advance as tolerated continue current medications along with promethazine as needed Medical Records I reviewed the patient's medical records. Lab Data I reviewed the patient's lab results. 03/02/25 13:55 03/02/25 13:55 Laboratory Results WBC 10.94 10^3/uL (3.29-11.43) 03/02/25 13:55 RBC 4.72 10^6/uL (3.85-5.65) 03/02/25 13:55 Hgb 14.00 g/dL (11.27-16.99) 03/02/25 13:55 Hct 42.2 % (37-53) 03/02/25 13:55 MCV 89.4 fl (82-101) 03/02/25 13:55 MCH 29.7 pg (27-33) 03/02/25 13:55 MCHC 33.2 g/dL (30-55) 03/02/25 13:55 RDW 12.1 % (12.1-15.1) 03/02/25 13:55 Plt Count 334 10^3/cmm (157-399) 03/02/25 13:55 MPV 9.6 fL (7.4-10.4) 03/02/25 13:55 Neut % (Auto) 86.8 % 03/02/25 13:55 Lymph % (Auto) 9.4 % 03/02/25 13:55 [place] % (Auto) 3.4 % 03/02/25 13:55 Eos % (Auto) 0.0 % 03/02/25 13:55 Baso % (Auto) 0.0 % 03/02/25 13:55 Neut # (Auto) 9.50 10^3/uL (1.8-7.7) H 03/02/25 13:55 Lymph # (Auto) 1.0 10^3/uL (0.8-4.8) 03/02/25 13:55 [place] # (Auto) 0.4 10^3/uL (0.2-0.9) 03/02/25 13:55 Eos # (Auto) 0.0 10^3/uL (0.0-0.8) 03/02/25 13:55 Baso # (Auto) 0.0 10^3/uL (0.0-0.1) 03/02/25 13:55 Nucleated RBC % (auto) 0 % 03/02/25 13:55 Nucleated RBCs # 0.0 /100WBC 03/02/25 13:55 Sodium 137 mmol/L (136-145) 03/02/25 13:55 Potassium 3.8 mmol/L (3.5-5.1) 03/02/25 13:55 Chloride 101 mmol/L (98-107) 03/02/25 13:55 Carbon Dioxide 25 mmol/L (22-29) 03/02/25 13:55 Anion Gap 14.8 (5-19) 03/02/25 13:55 BUN 12 mg/dL (6-20) 03/02/25 13:55 Creatinine 0.8 mg/dL (0.7-1.2) 03/02/25 13:55 GFR Calculation 109.4 mL/min (90-130) 03/02/25 13:55 Glucose 124 mg/dL (65-115) H 03/02/25 13:55 Calculated Osmolality 285 mOsm/kg (285-295) 03/02/25 13:55 Calcium 8.7 mg/dL (8.5-10.5) 03/02/25 13:55 Total Bilirubin 0.6 mg/dL (0.15-1.2) 03/02/25 13:55 AST 23 U/L (0-40) 03/02/25 13:55 ALT 25 U/L (0-41) 03/02/25 13:55 Alkaline Phosphatase 85 U/L (40-130) 03/02/25 13:55 Total Protein 7.7 g/dL (6.6-8.7) 03/02/25 13:55 Albumin 4.1 g/dL (3.5-5.2) 03/02/25 13:55 Globulin 3.6 g/dL (1.3-4.6) 03/02/25 13:55 Lipase 30 U/L (13-60) 03/02/25 13:55 All radiology interpretation(s) finalized by discharge Discharge Plan Discharge Patient Disposition: Home Clinical Impression: Opioid dependence on agonist therapy Nausea & vomiting Qualifiers: Vomiting type: unspecified Qualified Code(s): R11.2 - Nausea with vomiting, unspecified Condition: Stable Prescriptions: New promethazine 25 mg tablet 25 mg PO Q6H PRN (Reason: nausea and vomiting) Qty: 20 0RF No Action amoxicillin-pot clavulanate 875-125 mg tablet 1 tab PO BID Qty: 19 0RF lidocaine HCl [Lidocaine Viscous] 2 % solution 15 ml mucous membrane Q4H PRN (Reason: pain) Qty: 100 0RF Rx Instructions: Swish and spit naproxen 500 mg tablet 500 mg PO Q12H PRN (Reason: pain) Qty: 10 0RF chlorhexidine gluconate [Peridex] 0.12 % mouthwash 15 ml buccal BID Qty: 473 0RF naltrexone 50 mg tablet 50 mg PO Q24H 30 Days Qty: 30 0RF Rx Instructions: Take 25 mg day 1 and day 2 then increase to 50 mg daily Discharge Orders: Discharge ED (Routine); Ordered 03/02/25 Ordered By: Thang Philip Discharge Diet: Usual diet Discharge Activity: Resume usual activity Patient Instructions: Opioid Safety, Pain Management Activity Restrictions/Additional Instructions: Thank you for choosing [facility] for your healthcare needs today. It is very important that you follow up as instructed or that you return to the Emergency Department should you have concerns or if your condition changes or worsens in any way. You are seen emergency room with complaints of nausea and vomiting related to the cessation of Suboxone and taking naltrexone in its place. You are given IV fluids and antiemetics recommend you use promethazine 1 tablet every 6 hours as needed. Regulars small amount of fluid intake. Follow-up with your primary care doctor Stand Alone Forms: Work/School Release Print Language: Wolof Coding Level of Care Code ED Quality Assurance Supervisor Body for Lelo Valdovinos
[2025-03-02] MEDS: ondansetron 2 mg/ML SDV 2 mL 4 MG IVP (13:57)
[2025-03-02] MEDS: sodium chloride 0.9% 1,000 ML 999 ML IV ×2 (13:57→14:19)
[2025-03-02 14:10] LABS: Hematocrit 42.2 % (37-53); Lymphocytes % 9.4 %; Mean Corpuscular HGB Conc 33.2 g/dL (30-55); Mean Corpuscular Hemoglobin 29.7 pg (27-33); Mean Corpuscular Volume 89.4 fl (82-101); Mean Platelet Volume 9.6 fL (7.4-10.4); Monocytes # 0.4 10^3/uL (0.2-0.9); Monocytes % 3.4 %; Neutrophils % 86.8 %; Nucleated Red Blood Cells % 0 %; Platelet Count 334 10^3/cmm (157-399); Red Blood Count 4.72 10^6/uL (3.85-5.65); Red Cell Distribution Width 12.1 % (12.1-15.1); White Blood Count 10.94 10^3/uL (3.29-11.43)
[2025-03-02 14:26] LABS: Alanine Aminotransferase 25 U/L (0-41); Albumin Level 4.1 g/dL (3.5-5.2); Alkaline Phosphatase 85 U/L (40-130); Anion Gap 14.8 (5-19); Aspartate Amino Transferase 23 U/L (0-40); Blood Urea Nitrogen 12 mg/dL (6-20); Calcium 8.7 mg/dL (8.5-10.5); Carbon Dioxide 25 mmol/L (22-29); Chloride 101 mmol/L (98-107); Creatinine Clr Calc Pharmacy 133.9209; Globulin 3.6 g/dL (1.3-4.6); Glomerular Filtration Rate 109.4 mL/min (90-130); Glucose 124 mg/dL (65-115); Lipase 30 U/L (13-60); Osmolality Calculated 285 mOsm/kg (285-295); Potassium 3.8 mmol/L (3.5-5.1); Sodium 137 mmol/L (136-145); Total Bilirubin 0.6 mg/dL (0.15-1.2); Total Protein 7.7 g/dL (6.6-8.7)
[2025-03-02 14:31] VITALS: BP 125/73; RESP 18
== END 2025-03-02 15:17 | disposition home or self-care (01) ==
PROVIDERS: Emergency Medicine; Emergency Provider Family Medicine
DX: R11.2 Nausea with vomiting, unspecified (principal); F11.20 Opioid dependence, uncomplicated; Z72.0 Tobacco use
CPT/HCPCS: 36415; 80053; 83690; 85025; 96374; 99284; J2405; J7030

== ENCOUNTER 2025-03-21 09:45 | Emergency (ER) | payer OTHER, SELFPAY ==
[2025-03-21 09:53] VITALS: BP 119/71; PULSE 87; RESP 18; TEMP 36.7; O2SAT 100; BMI 28.0
--- NOTE | 2025-03-21 10:00 | ED_ITS ---
HPI - Recheck/Abnormal Lab/Rx General: Chief Complaint: Recheck/Abnormal Lab/Rx Stated Complaint: needs meds Time Seen by Provider: 03/21/25 09:48 History of Present Illness: 35-year-old male who is on methadone reg [facility] presents to the emergency room because he overslept was not able to get to his appointment at [facility] this morning. His appointment was at 9 AM he presents here at 945. No injury no specific complaint. Related Data Previous Rx's ?Medication ?Instructions ?Recorded amoxicillin 875 mg-potassium 1 tab PO BID #19 tabs clavulanate 125 mg tablet chlorhexidine gluconate 0.12 % 15 ml buccal BID #473 m L 02/22/25 mouthwash (Peridex) lidocaine HCl 2 % mucosal solution 15 ml mucous membra ne Q4H PRN pain 02/22/25 (Lidocaine Viscous) #100 mL naproxen 500 mg tablet 500 mg PO Q12H PRN pain #10 tabs 02/22/25 naltrexone 50 mg tablet 50 mg PO Q24H 30 days #30 ta bs 03/01/25 promethazine 25 mg tablet 25 mg PO Q6H PRN nausea and 03/02/25 vomiting #20 tabs Allergies Allergy/AdvReac Type Severity Reaction Status Date / Time No Known Allergies Allergy Verified 05/02/23 18:53 [facility] ED PFSH: Medical History Anxiety Social History Smoking and tobacco/nicotine status: current every day tobacco/nicotine user Physical Exam Const: COMMON NORMALS: no acute distress GENERAL APPEARANCE: cooperative and comfortable ORIENTATION/CONSCIOUSNESS: Yes awake, Yes oriented to person, Yes oriented to place and Yes oriented to time HENMT: COMMON NORMALS: normocephalic, atraumatic and hearing grossly normal bilaterally HEAD & SCALP: normocephalic and atraumatic Resp: COMMON NORMALS: normal respiratory effort Neuro: SENSORIUM/ORIENTATION: Yes oriented to person, Yes oriented to place and Yes oriented to time Course Vital Signs: Vital signs: Vital Signs Temperature 98.0 F 03/21/25 09:53 Pulse Rate 87 03/21/25 09:53 Respiratory Rate 18 03/21/25 09:53 Blood Pressure 119/71 03/21/25 09:53 Pulse Oximetry 100 03/21/25 09:53 Oxygen Delivery Me thod Room Air 03/21/25 09:53 MDM - Recheck/Abnormal Lab/Rx Medical Decision Making Discussed with patient we do not refill will write prescription for methadone that people are on chronically. Encourage patient to follow-up with his primary care doctor or the clinic that prescribes his methadone. Medical Records I reviewed the patient's medical records. Lab Data I reviewed the patient's lab results. No radiology studies performed this visit Discharge Plan Discharge Patient Disposition: Home Clinical Impression: Opioid dependence on agonist therapy Condition: Stable Prescriptions: No Action promethazine 25 mg tablet 25 mg PO Q6H PRN (Reason: nausea and vomiting) Qty: 20 0RF amoxicillin-pot clavulanate 875-125 mg tablet 1 tab PO BID Qty: 19 0RF lidocaine HCl [Lidocaine Viscous] 2 % solution 15 ml mucous membrane Q4H PRN (Reason: pain) Qty: 100 0RF Rx Instructions: Swish and spit naproxen 500 mg tablet 500 mg PO Q12H PRN (Reason: pain) Qty: 10 0RF chlorhexidine gluconate [Peridex] 0.12 % mouthwash 15 ml buccal BID Qty: 473 0RF naltrexone 50 mg tablet 50 mg PO Q24H 30 Days Qty: 30 0RF Rx Instructions: Take 25 mg day 1 and day 2 then increase to 50 mg daily Discharge Orders: Discharge ED (Routine); Ordered 03/21/25 Ordered By: Thang Philip Discharge Diet: Usual diet Discharge Activity: Resume usual activity Patient Instructions: Opioid Safety, Pain Management Activity Restrictions/Additional Instructions: Thank you for choosing [facility] for your healthcare needs today. It is very important that you follow up as instructed or that you return to the Emergency Department should you have concerns or if your condition changes or worsens in any way. You were seen in the emergency room regarding your chronic medications. Unfortunately we are not able to provide doses or refilled medications of that nature for chronic use. Recommend that you follow-up with your primary care doctor or what ever clinics that you get your medications at. Print Language: Uruguayan Coding Level of Care Code ED Deicer Repairer [employer] for Lelo Valdovinos
== END 2025-03-21 10:06 | disposition home or self-care (01) ==
PROVIDERS: Emergency Provider Family Medicine
DX: F11.20 Opioid dependence, uncomplicated (principal); Z72.0 Tobacco use
CPT/HCPCS: 99281

== ENCOUNTER 2025-03-22 18:34 | Emergency (ER) | payer OTHER, SELFPAY ==
[2025-03-22 18:57] VITALS: BP 121/81; PULSE 81; RESP 17; TEMP 36.6; O2SAT 100; BMI 24.3
--- NOTE | 2025-03-22 19:12 | ED_ITS ---
HPI - Dental/Oral General: Chief complaint: Dental/Oral Stated complaint: Tooth Ache Time Seen by Provider: 03/22/25 18:42 History of Present Illness: Patient is 35-year-old male that presents due to dental pain. Patient states this started the last 3 days. He does not have a dentist. He is able to swallow without difficulty. No fevers. His pain is the upper right back tooth. He does not appear to be present with an open cavitary Associated symptoms: Denies fever(s) Related Data Previous Rx's ?Medication ?Instructions ?Recorded amoxicillin 875 mg-potassium 1 tab PO BID #19 tabs clavulanate 125 mg tablet chlorhexidine gluconate 0.12 % 15 ml buccal BID #473 m L 02/22/25 mouthwash (Peridex) lidocaine HCl 2 % mucosal solution 15 ml mucous membra ne Q4H PRN pain 02/22/25 (Lidocaine Viscous) #100 mL naproxen 500 mg tablet 500 mg PO Q12H PRN pain #10 tabs 02/22/25 naltrexone 50 mg tablet 50 mg PO Q24H 30 days #30 ta bs 03/01/25 promethazine 25 mg tablet 25 mg PO Q6H PRN nausea and 03/02/25 vomiting #20 tabs amoxicillin 500 mg capsule 500 mg PO BID 10 days #20 c aps 03/22/25 Allergies Allergy/AdvReac Type Severity Reaction Status Date / Time No Known Allergies Allergy Verified 05/02/23 18:53 Review of Systems Const: Denies: fever(s) or chills Eyes: Denies: change in vision or blurry vision ENMT: Reports: mouth pain and dental pain; Denies: throat pain Card: Denies: chest pain or palpitations Resp: Denies: dyspnea or productive cough GI: Denies: abdominal pain, nausea or vomiting : Denies: flank pain or difficulty urinating Musc: Denies: neck pain or back pain Skin/Breast: Denies: rash or pruritus Neuro: Denies: headache(s) or numbness in extremities Psych: Denies: anxiety or depression PFS ED PFSH: Medical History Anxiety Social History Smoking and tobacco/nicotine status: current every day tobacco/nicotine user Physical Exam Const: COMMON NORMALS: no acute distress, average body habitus and patient oriented x3 HENMT: COMMON NORMALS: normocephalic and atraumatic HEAD & SCALP: normocephalic and atraumatic Neck/C-Spine: COMMON NORMALS: full ROM and no lymphadenopathy Lymph: LYMPHATIC: no lymphadenopathy noted Chest: COMMONS NORMALS: normal inspection of the chest and normal palpation of entire chest wall Resp: COMMON NORMALS: normal respiratory effort and clear to auscultation bilaterally AUSCULTATION: clear to auscultation bilaterally Cardio: COMMON NORMALS: regular rate and regular rhythm RATE: regular rate RHYTHM: regular rhythm GI: COMMON NORMALS: Normal to inspection, nondistended, normoactive bowel sounds present and Soft to palpation PALPATION: Yes Soft to palpation : COMMON NORMALS: Yes no CVA tenderness BLADDER/KIDNEY EXAM: Yes no CVA tenderness Back/Pelvis: COMMON NORMALS: no CVA tenderness Extremity: COMMON NORMALS: normal to inspection and full ROM Neuro: COMMON NORMALS: patient oriented x3 Psych: COMMON NORMALS: mental status grossly normal, Normal thought process present, cooperative, normal affect and speech normal SPEECH: Yes normal speech THOUGHT PROCESS: Normal thought process present Skin: COMMON NORMALS: no rashes or lesions noted and no wounds GENERAL SKIN EXAM: no rashes or lesions noted Procedures Nerve Block Nerve Block 1: Time out performed: Yes Local Anesthetic: lidocaine 1% and bupivacaine 0.5% Amount of anesthesia used (mL): 2 Side: right Nerve Blocks: other (regional nerve block along upper right dental block) Intraoral Nerve Block: superior alveolar Course Vital Signs: Vital signs: Vital Signs Temperature 97.9 F 03/22/25 18:57 Pulse Rate 81 03/22/25 18:57 Respiratory Rate 17 03/22/25 18:57 Blood Pressure 121/81 03/22/25 18:57 Pulse Oximetry 100 03/22/25 18:57 Oxygen Delivery Me thod Room Air 03/22/25 18:57 MDM - Dental/Oral Medical Decision Making Patient is 35-year-old male presents with upper right tooth pain. Tooth #1 on the right upper, has fracture and cavitation with localized redness. Patient is able to open his mouth fully, no trismus is present, no disorder with swallowing. Attempted a block, however injecting 0.4 milliliters of butacaine and lidocaine mixture patient asked me to stop the procedure which I obliged. He wanted to place the lidocaine bupivacaine directly into the cavitation which I assisted with. Discussed with patient that we do not do dental care at the ER, and he will need to follow-up with a dentist. Placed him on amoxicillin. He wanted Toradol x 1 which she was given prior to discharge. Encouraged naproxen or ibuprofen as per the [employer]. Patient states understanding. No radiology studies performed this visit Discharge Plan Discharge Patient Disposition: Home Clinical Impression: Dental caries Condition: Stable Prescriptions: New amoxicillin 500 mg capsule 500 mg PO BID 10 Days Qty: 20 0RF No Action promethazine 25 mg tablet 25 mg PO Q6H PRN (Reason: nausea and vomiting) Qty: 20 0RF amoxicillin-pot clavulanate 875-125 mg tablet 1 tab PO BID Qty: 19 0RF lidocaine HCl [Lidocaine Viscous] 2 % solution 15 ml mucous membrane Q4H PRN (Reason: pain) Qty: 100 0RF Rx Instructions: Swish and spit naproxen 500 mg tablet 500 mg PO Q12H PRN (Reason: pain) Qty: 10 0RF chlorhexidine gluconate [Peridex] 0.12 % mouthwash 15 ml buccal BID Qty: 473 0RF naltrexone 50 mg tablet 50 mg PO Q24H 30 Days Qty: 30 0RF Rx Instructions: Take 25 mg day 1 and day 2 then increase to 50 mg daily Discharge Orders: Discharge ED (Routine); Ordered 03/22/25 Ordered By: Zhanna Robison Discharge Diet: Soft Mechanical Patient Instructions: Dental Caries (Cavities) Activity Restrictions/Additional Instructions: Follow-up with your dentist. Take all your antibiotics as prescribed. You will need to obtain a probiotic or eat active culture yogurt on a daily basis to avoid infectious diarrhea We are unable to extract teeth in the ER Naproxen is recommended by [employer] for pain, or you can use ibuprofen with Tylenol for analgesia. Return to ED if you are unable to open your mouth, have a fever, or abscess. Print Language: [place] Rican Coding Level of Care Code ED Healthcare Advisory Services Manager for Lelo Valdovinos
[2025-03-22] MEDS: amoxicillin 500 mg Capsule 1000 MG PO (19:19)
[2025-03-22] MEDS: ketorolac 30 mg/mL INJ 60 MG IM (19:28)
== END 2025-03-22 19:29 | disposition home or self-care (01) ==
PROVIDERS: Emergency Provider Physician Assistant
DX: K02.9 Dental caries, unspecified (principal); Z72.0 Tobacco use
CPT/HCPCS: 96372; 99284; J1885; J9999